=== PATIENT | female | born 1990 | race Caucasian/White ===

== ENCOUNTER → 2019-04-29 | Outpatient (CLI) | payer BC ==
[~2019-04-29] MED LIST: ACET500 PO; AMOX500 PO; CYCL10 PO; DIAZ5 PO; HYDACE5 PO; IBUP800 PO; Keflex500 MG PO; MEDR150I IM; Norco 5-325 Ta1 EACH PO; PRED20 PO; Prednisone20 MG PO
[2019-05-01 23:06] LABS: CHLAMYDIA TRACHOMATIS, NAA Negative (Negative); NEISSERIA GONORRHOEAE, NAA Negative (Negative)
== END ==
LOC: LAB 14:44 → LAB SHORT 14:44
PROVIDERS: Obstetrics & Gynecology
DX: Z12.4 Encounter for screening for malignant neoplasm of cervix (principal)
CPT/HCPCS: 87491; 87591; G0123

== ENCOUNTER → 2020-10-17 | Outpatient (CLI) | payer BC ==
[2020-10-18 16:06] LABS: HPV 16 Negative (Negative); HPV 18 Negative (Negative); HPV OTHER HR TYPES Negative (Negative)
== END | disposition home or self-care (01) ==
LOC: LAB 11:46 → LAB SHORT 11:46
PROVIDERS: Advanced Practice Midwife
DX: Z01.419 Encounter for gynecological examination (general) (routine) without abnormal findings (principal)
CPT/HCPCS: 87624; G0123

== ENCOUNTER → 2020-12-26 | Outpatient (CLI) | payer BC | END | disposition home or self-care (01) | LOC: LAB 11:16 → LAB SHORT 11:16 | DX: D22.72 Melanocytic nevi of left lower limb, including hip (principal) | CPT/HCPCS: 88305 ==